=== PATIENT | female | born 1985 | race Caucasian/White ===

== ENCOUNTER 2016-12-07 13:01 | Emergency (ER) | payer OTHER ==
[~2016-12-07] VITALS: Ht 177.8 cm; Wt 66.8 kg
[~2016-12-07 13:01] MED LIST: IBUP-1827 PO
[2016-12-07 13:03] VITALS: BP 137/86; PULSE 74; RESP 16; O2SAT 100
[2016-12-07] MEDS ORDERED: PREN-105 PO (13:07)
[2016-12-07] MEDS ORDERED: CEPH500C PO (13:07)
--- NOTE | 2016-12-07 13:48 | ED.REPORT ---
HPI-Abd Pain F Under 40 Date of Service Dec 07, 2016 ED Provider: Blaise Euceda MD The pt is a 31 y/o seven weeks female () with no pertinent hx who presents to the ED complaining of back pain that worsens with movement, onset 2 days ago. She was seen at [facility] urgent care for the same complaint. Her urine was negative but she was prescribed Keflex for a possible kidney infection. Her ultrasound at the time showed a single live uterine gestation with a gestational age of 6 weeks..Associated sx include nausea, chills, lack of appetite, weakness, and subjective fever. She denies vomiting, urinary urgency, urinary retention, dysuria, cough, sore throat, and ear ache. She has been taking tylenol which did not help her significantly. The pt has never experienced similar sx before. Nursing Notes Stated Complaint: POSS KIDNEY INFECTION Chief Complaint: Female Abdominal Pain Nursing Notes Reviewed: Yes Allergies: Coded Allergies: No Known Allergies (Verified Allergy, Unknown, 12/07/16) Scheduled Cephalexin (Cephalexin) 500 Mg Capsule 1 TAB PO QID Vits #93/Iron Fum/FA ( Formula Tablet) 1 Each Tablet 1 EACH PO DAILY General Time Seen by MD: 13:54 Chief Complaint Other (back pain) Hx Obtained From: Patient Arrived By: Walk-in Sudden in Onset?: Yes Onset Occurred: 2 days ago Symptom Duration: Since onset Location: : Back Quality: Painful Radiation: : Does not radiate Severity: Current: Severe Severity: Maximum: Severe Exacerbated by: Movement Recent Healthcare: Recent doctor visit Similar Sx Previous: No Past Medical History Past Medical History none reported Past Surgical History Knee Reports: Tonsillectomy Smoking History Never Smoker Social History Other Social History: Good social support Ambulatory Status Independent Review of Systems Reports: lack of appetite Denies: urinary retention Constitutional: Reports: Chills, Fever (subjective), Weakness - generalized Respiratory: Denies: Non-productive cough GI: Reports: Nausea, Denies: Vomiting Female: Reports: , Denies: Dysuria, Urinary urgency Musculoskeletal: Reports: Back pain Complete sys rev & neg: except as marked. Ears / Nose / Throat: Denies: Earache bilateral, Sore throat Physical Exam Initial Vital Signs Vital Signs (First) Date Time Temp Pulse Resp B/P Pulse Ox O2 Delivery O2 Flow Rate FiO2 12/07/16 13:03 36.5 74 16 137/86 100 Room Air Initial VS: Reviewed Head / Eyes: Atraumatic, Normocephalic Neck: Supple, Non-tender, Full range of motion Extremities: Vascular intact, Neuro intact, No swelling, No tenderness Skin: Warm, Dry, No cyanosis Neurologic: Alert, Oriented, Nonfocal General/Constitutional: Awake, Alert, No acute distress, Well appearing, Cooperative Respiratory / Chest: Atraumatic, Breath sounds NL, Breath sounds = bilat, No respiratory distress, No rales, No rhonchi, No wheezing Cardiovascular: Heart rate NL, Regular rhythm, Heart sounds NL, No gallop, No murmurs, No rubs Abdomen: Atraumatic, Soft, Non-tender, No guarding, No rebound, BS normoactive Back: Atraumatic, Full range of motion, Non-tender Interpretation & Diagnostics Lab Results Interpretation Test 12/07/16 13:30 Hold Urine Received (Received) Re-Eval/Medical Decision Re-Evaluation/Progress #1: Time of Eval: 14:05 Re-Evaluation/Progress Note: Discussed the lab results from the urgent care. Informed the pt there is no sign of a kidney and urinary tract infection. Discussed the plan to consult Dr. Washington. She understands and agrees with the plan. All questions answered. Re-Evaluation/Progress #2: Time of Eval: 14:43 Re-Evaluation/Progress Note: Rechecked pt. Discussed diagnosis, Dr. Washington's recommendation and plan to discharge. Pt understands and agrees with the plan. F/U instruction and RTER warning given. All questions addressed. Consultation : Referral / Consult Name: Barbara Washington MD Call Returned at: 14:13 Medical Receptionist Assistant: Will see in office, Agrees with eval, Agrees with plan Note: She will make arrangements to see the patient in her clinic in the next couple of days. She recommended no additional studies or therapy. Counseled Regarding: Diagnosis, Need for follow-up, When/why to return to ED Discharge & Departure Primary Impression: Back pain Back pain location: low back pain Chronicity: acute Back pain laterality: bilateral Sciatica presence: without sciatica Qualified Code: M54.5 - Low back pain Disposition: Home Discharge Condition All VS Reviewed: Yes Condition: Stable Patient Instructions: Acute Low Back Pain (ED) Additional Instructions: No dangerous cause for your pain is discovered today. We have compelling evidence that you do not have a bladder or urinary tract infection. I recommend that you discontinue cephalexin. I recommend Tylenol (acetaminophen) 1000 mg every 6 hours as a maximum Tylenol dose. If you have very severe pain not controlled with Tylenol, I recommend hydrocodone/APAP one or 2 tablets every 4 hours as needed for very severe pain. Each hydrocodone/APAP tablet contains 325 mg of acetaminophen. This needs to be included in your daily maximum dose of acetaminophen which is [address] Washington's office today for an appointment or Monday. Follow-up right away for new or worsening symptoms. Referrals: Stephanie Gifford DO (PCP) Scribe Attestation Portions of this note were transcribed by Yadira Lozano. I,, personally performed the history,physical exam and medical decision-making;I reviewed and confirmed the accuracy of the information in the transcribed note. Signed by Jhon Washington. 12/07/16 copies to: Stephanie Gifford Kirk H MD Dec 07, 2016 13:48 Yadira Lozano Dec 07, 2016 14:00
[2016-12-07] MEDS ORDERED: HYDR-4003 PO (14:55)
[2016-12-07 15:06] VITALS: BP 113/62; PULSE 66; RESP 16; O2SAT 98
== END 2016-12-07 15:08 | disposition home or self-care (01) ==
LOC: SED 13:01
DX: O99.89 Other specified diseases and conditions complicating pregnancy, childbirth and the puerperium (principal); M54.5 Low back pain; R50.9 Fever, unspecified; Z3A.01 Less than 8 weeks gestation of pregnancy